=== PATIENT | female | born 1990 | race Two or more races ===

== ENCOUNTER 2022-04-07 08:29 | Emergency (ER) | payer BC ==
[~2022-04-07] VITALS: Ht 167.6 cm; Wt 65.8 kg
[2022-04-07] MEDS ORDERED: ZITHROMAX500 MG PO (10:37)
[2022-04-07] MEDS ORDERED: TUSSIN DM SYRU118 ML PO (10:39)
== END 2022-04-07 10:47 | disposition home or self-care (01) ==
LOC: ER 08:29
DX: B34.9 Viral infection, unspecified (principal); A49.3 Mycoplasma infection, unspecified site; Z20.822 Contact with and (suspected) exposure to COVID-19